=== PATIENT | male | born 1960 | race Caucasian/White ===

== ENCOUNTER 2020-07-10 07:58 | Outpatient (CLI) | payer OTHER, SELFPAY ==
--- NOTE | 2020-07-10 08:49 | ECG_ITS ---
Measurements Intervals [place] Rate: 81 P: 14 LA: 150 QRS: 39 QRSD: 93 T: 16 QT: 363 QTc: 422 Interpretive Statements SINUS RHYTHM DELAYED PRECORDIAL R/S TRANSITION BASELINE ARTIFACT- I, II, III, AVR, AVL, AVF BORDERLINE ECG Electronically Signed On 07-10-2020 9:06:18 PHYSICS TEACHER by Jose Steele D.O.
[2020-07-10 09:22] LABS: Basophils Absolute Auto 0.1 K/mm3 (0.0-0.1); Basophils Percent Auto 1.1 % (0.2-1.2); Eosinophils Absolute Auto 0.4 K/mm3 (0-0.3); Eosinophils Percent Auto 3.9 % (0-4.4); Hematocrit 42.5 % (42.0-52.0); Hemoglobin 15.3 g/dL (14.0-18.0); Immature Granulocyte Absolute 0.03 K/mm3 (0.00-0.031); Immature Granulocyte Percent A 0.3 % (0-0.5); Lymphocytes Absolute Auto 3.27 K/mm3 (0.9-3.2); Lymphocytes Percent Auto 35.7 % (18.3-44.2); Mean Corpuscular Volume 88.9 fl (80-100); Mean Platelet Volume 10.4 fl (7.4-10.4); Monocytes Absolute Auto 0.7 K/mm3 (0.1-0.6); Monocytes Percent Auto 7.3 % (2.6-8.5); Neutrophils Absolute Auto 4.7 K/mm3 (1.3-6.7); Neutrophils Percent Auto 51.7 % (45.5-73.1); Platelet Count Result 249 k/mm3 (150-375); Red Blood Count 4.78 M/mm3 (4.6-6.20); Red Cell Distribution Width 12.5 % (11.5-14.5); White Blood Count 9.2 K/mm3 (4.5-10.0)
[2020-07-10 09:33] LABS: Albumin Level 4.4 g/dL (3.5-5.1)
[2020-07-10 09:34] LABS: Urine Cotinine POSITIVE
[2020-07-10 09:53] LABS: Anion Gap 6 mmol/L (8-16); Blood Urea Nitrogen 24 mg/dL (9-20); Calcium 9.9 mg/dL (8.4-10.2); Carbon Dioxide 29 mmol/L (22-30); Chloride 102 mmol/L (98-107); Estimated Glomerular Filt Rate > 60; Glucose 152 mg/dL (75-110); Sodium 137 mmol/L (137-145)
[2020-07-10 10:11] LABS: Potassium 4.6 mmol/L (3.4-5.0)
== END 2020-07-10 07:59 | disposition home or self-care (01) ==
LOC: ANHSURGERY 08:03
PROVIDERS: Anesthesiology; PCP Family Medicine; Visit Provider Orthopaedic Surgery
DX: M17.12 Unilateral primary osteoarthritis, left knee (principal); Z79.899 Other long term (current) drug therapy; Z01.818 Encounter for other preprocedural examination; R94.31 Abnormal electrocardiogram [ECG] [EKG]
CPT/HCPCS: 80048; 80307; 82040; 83036; 85025; 86850; 86900; 86901; 87081; 93005

== ENCOUNTER 2022-03-27 11:40 | Outpatient (CLI) | payer OTHER, SELFPAY ==
[2022-03-27 18:39] LABS: Basophils Absolute Auto 0.1 K/mm3 (0.0-0.1); Basophils Percent Auto 1.6 % (0.2-1.2); Eosinophils Absolute Auto 0.4 K/mm3 (0-0.3); Eosinophils Percent Auto 4.3 % (0-4.4); Hematocrit 38.1 % (42.0-52.0); Hemoglobin 13.1 g/dL (14.0-18.0); Immature Granulocyte Absolute 0.02 K/mm3 (0.00-0.031); Immature Granulocyte Percent A 0.2 % (0-0.5); Lymphocytes Absolute Auto 3.54 K/mm3 (0.9-3.2); Lymphocytes Percent Auto 40.3 % (18.3-44.2); Mean Corpuscular HGB Conc 34.4 g/dl (32-36); Mean Corpuscular Volume 90.3 fl (80-100); Mean Platelet Volume 11.5 fl (7.4-10.4); Monocytes Absolute Auto 0.7 K/mm3 (0.1-0.6); Monocytes Percent Auto 8.4 % (2.6-8.5); Neutrophils Percent Auto 45.2 % (45.5-73.1); Platelet Count Result 289 k/mm3 (150-375); Red Blood Count 4.22 M/mm3 (4.6-6.20); Red Cell Distribution Width 13.1 % (11.5-14.5); White Blood Count 8.8 K/mm3 (4.5-10.0)
[2022-03-27 20:35] LABS: LDL Cholesterol Direct 51 mg/dL
[2022-03-27 20:48] LABS: Alanine Aminotransferase 28 U/L (6-50); Albumin Level 4.6 g/dL (3.5-5.1); Alkaline Phosphatase 97 U/L (38-126); Anion Gap 12 mmol/L (8-16); Aspartate Amino Transferase 32 U/L (17-59); Bilirubin,Total 0.3 mg/dL (0.2-1.3); Blood Urea Nitrogen 32 mg/dL (9-20); Calcium 10.1 mg/dL (8.4-10.2); Carbon Dioxide 25 mmol/L (22-30); Chloride 101 mmol/L (98-107); Cholesterol 199 mg/dL (0-200); Estimated Glomerular Filt Rate > 60; Glucose 324 mg/dL (65-110); Lipase 392 U/L (23-300); Potassium 4.3 mmol/L (3.4-5.0); Sodium 138 mmol/L (137-145)
[2022-03-27 21:24] LABS: Hemoglobin A1C 9.4 % (<5.7)
[2022-03-27 22:17] LABS: Triglycerides 640 mg/dL (<150)
== END 2022-03-27 11:41 | disposition home or self-care (01) ==
LOC: ANHGOSHLAB 11:41
PROVIDERS: PCP Emergency Medicine; Visit Provider Emergency Medicine
DX: E11.8 Type 2 diabetes mellitus with unspecified complications (principal); R10.9 Unspecified abdominal pain
CPT/HCPCS: 36415; 80053; 80061; 83036; 83690; 85025

== ENCOUNTER 2022-03-30 13:22 | Emergency (ER) | payer OTHER, SELFPAY ==
--- NOTE | ~2022-03-30 | US_ITS ---
EXAMINATION: US right upper quadrant DATE: 03/30/2022 16:24 INDICATION: Right upper quadrant pain TECHNIQUE: Multiple grayscale and Doppler ultrasound images of the abdomen were obtained. COMPARISON: None available FINDINGS: The head and body of the pancreas are normal. The pancreatic tail is obscured by bowel gas. The liver demonstrates increased echogenicity, heterogenous echotexture, and decreased through trans mission. No surface nodularity. Normal hepatopetal flow in the main portal vein. The gallbladder is n ormal with no abnormal wall thickening, pericholecystic fluid or stones. The normal common bile duct measures 3 mm. There was no sonographic Henry sign. IMPRESSION: 1. Diffuse hepatic steatosis. Reviewed, dictated and finalized at location B.
[2022-03-30 13:32] VITALS: BP 154/80; PULSE 101; RESP 15; TEMP 36.5; O2SAT 100
[2022-03-30 14:52] LABS: Basophils Absolute Auto 0.1 K/mm3 (0.0-0.1); Basophils Percent Auto 0.8 % (0.2-1.2); Eosinophils Absolute Auto 0.3 K/mm3 (0-0.3); Eosinophils Percent Auto 2.3 % (0-4.4); Hematocrit 35.5 % (42.0-52.0); Hemoglobin 12.7 g/dL (14.0-18.0); Immature Granulocyte Absolute 0.06 K/mm3 (0.00-0.031); Immature Granulocyte Percent A 0.4 % (0-0.5); Lymphocytes Absolute Auto 2.97 K/mm3 (0.9-3.2); Lymphocytes Percent Auto 21.9 % (18.3-44.2); Mean Corpuscular HGB Conc 35.8 g/dl (32-36); Mean Corpuscular Hemoglobin 31.7 pg (26-34); Mean Corpuscular Volume 88.5 fl (80-100); Mean Platelet Volume 10.5 fl (7.4-10.4); Monocytes Absolute Auto 0.9 K/mm3 (0.1-0.6); Monocytes Percent Auto 6.4 % (2.6-8.5); Neutrophils Absolute Auto 9.3 K/mm3 (1.3-6.7); Neutrophils Percent Auto 68.2 % (45.5-73.1); Platelet Count Result 280 k/mm3 (150-375); Red Blood Count 4.01 M/mm3 (4.6-6.20); Red Cell Distribution Width 12.4 % (11.5-14.5); White Blood Count 13.6 K/mm3 (4.5-10.0)
[2022-03-30 15:37] LABS: Alanine Aminotransferase 25 U/L (6-50); Albumin Level 4.6 g/dL (3.5-5.1); Alkaline Phosphatase 95 U/L (38-126); Anion Gap 14 mmol/L (8-16); Aspartate Amino Transferase 21 U/L (17-59); Bilirubin,Total 0.5 mg/dL (0.2-1.3); Blood Urea Nitrogen 26 mg/dL (9-20); Calcium 9.8 mg/dL (8.4-10.2); Carbon Dioxide 23 mmol/L (22-30); Chloride 98 mmol/L (98-107); Estimated CRCL calculation 89 ml/min; Estimated Glomerular Filt Rate > 60; Glucose 333 mg/dL (65-110); Lipase 425 U/L (23-300); Potassium 4.2 mmol/L (3.4-5.0); Sodium 135 mmol/L (137-145)
[2022-03-30] MEDS: ONDANSETRON INJ 4 MG/2 ML VIAL IV PUSH (16:05)
[2022-03-30] MEDS: MORPHINE SULFATE (*CRX) 4 MG/ML INJ IV PUSH (16:05)
[2022-03-30 16:44] LABS: Appearance Urine Clear (Clear); Bilirubin Urine Negative (Negative); Blood Urine Trace-lysed (Negative); Color Urine Yellow (Yellow); Glucose Urine UA 3+ mg/dL (Negative); Ketones Urine Trace mg/dL (Negative); Leukocyte Esterase Ur Negative LEU/UL (Negative); Nitrate Urine Negative (Negative); Protein Urine 2+ mg/dL (Negative); Specific Grav Ur 1.025 (1.001-1.035); Urobilinogen Urine 0.2 mg/dL (<2.0); pH Urine 5.5 (5.0-9.0)
[2022-03-30 16:52] LABS: RBC Urine 0-2 /hpf (0-2); WBC Urine 0-3 /hpf
[2022-03-30 17:21] LABS: Add Urine Microscopic? YES
--- NOTE | 2022-03-30 18:14 | ED.GENADULT ---
HPI - General Adult General Chief complaint: Abdominal Pain Stated complaint: abdominal pain Time Seen by Provider: 03/30/22 15:45 History of Present Illness HPI narrative: Patient is a 61-year-old male who presents ER with upper abdominal pain. Its been an ongoing issue for several weeks but is worsened over the last couple days. Associated with nausea and he started to have diarrhea. He has some pain with eating. Its in the right upper quadrant and moves to his back. No fevers or chills or sweats. No emesis. Has not found alleviating factors. Related Data Home Medications Medication Instructions Recorded Confirmed aspirin 81 mg tablet,delayed 81 mg PO DAILY 04/23/20 03/27/22 release (Adult Aspirin Regimen) niacin 1,000 mg tablet,extended 1,000 mg PO DAILY 04/23/20 03/27/22 release omega-3 fatty acids 1,000 mg 1,000 mg PO BID 04/23/20 03/27/22 capsule (Fish Oil Concentrate) ibuprofen 800 mg tablet 800 mg PO QAM 07/10/20 03/27/22 magnesium 500 mg tablet 15 mg PO DAILY 07/10/20 03/27/22 Allergies Allergy/AdvReac Type Severity Reaction Status Date / Time naproxen Allergy Unknown Skin Verified 03/27/22 10:41 Reaction-HIVES Review of Systems Review of Systems: All systems reviewed & are unremarkable except as noted in HPI and below Constitutional: Constitutional: Denies chills, Denies fatigue and Denies fever(s) ENT: Denies nasal congestion and Denies sore throat Cardiovascular: Cardiovascular: Denies chest pain, Denies rapid heart rate and Denies radiating jaw, neck or arm pain Respiratory: Respiratory: Denies cough, Denies dyspnea and Denies wheezing Gastrointestinal: Gastrointestinal: Reports abdominal pain, Reports diarrhea, Reports nausea and Denies vomiting Genitourinary: Genitourinary: Denies dysuria and Denies urinary frequency [facility] Past Medical History Medical History BMI 34.0-34.9,adult Essential (primary) hypertension Hemoglobin A1c between 7.0% and 9.0% 09/22/19 A1c was 7.1 Mixed hyperlipidemia Osteoarthritis of left knee Tibial mass Left knee meniscal cyst Type 2 diabetes mellitus with complication, without long-term current use of insulin Surgical History Surgical History History of back surgery 01/06/00, Dr. Rogers Family History Family History Mother Diabetes mellitus Hypertension Family history of cardiovascular disease Father Hypertension Family history of cardiovascular disease Cerebrovascular accident Family history of elevated blood lipids Family history of coronary artery disease Sibling Diabetes mellitus Grandparent Family history of malignant neoplasm Social History Social History Smoking status: Former smoker Tobacco type: cigars Additional smoking assessment comments: STATES HX CIGARETTES 2PK/DAY/30YRS QUIT FOR 7YRS NOW SMOKING 5-6 CIGARS/DAY Alcohol intake: current Drinks per week: 1 Alcohol use details: occasional Substance use: never Substance use type: does not use 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 HEAD: Normocephalic, atraumatic. NECK: Supple. CHEST: Clear to auscultation. No respiratory distress. HEART: Regular rate and rhythm. Normal peripheral pulses. ABDOMEN: Soft, mild discomfort in right upper quadrant without rebound or guarding, nondistended. EXTREMITIES: Normal range of motion. No edema. SKIN: Warm, dry, no rash. NEURO: Alert and oriented x3. PSYCH: Normal mood and affect. Course Vital Signs Vital signs: Vital Signs Temperature 97.7 F 03/30/22 13:32 Pulse Rate 101 H 03/30/22 1
== END 2022-03-30 18:37 | disposition home or self-care (01) ==
PROVIDERS: Emergency Provider Emergency Medicine; PCP Emergency Medicine
DX: E11.65 Type 2 diabetes mellitus with hyperglycemia (principal); K75.81 Nonalcoholic steatohepatitis (NASH); I10 Essential (primary) hypertension; E78.2 Mixed hyperlipidemia; F17.290 Nicotine dependence, other tobacco product, uncomplicated; Z79.82 Long term (current) use of aspirin; Z79.84 Long term (current) use of oral hypoglycemic drugs
CPT/HCPCS: 36415; 76705; 80053; 81001; 83690; 85025; 96374; 96375; 99284; J2270; J2405

== ENCOUNTER 2022-03-31 17:54 | Emergency (ER) | payer OTHER, SELFPAY ==
[2022-03-31] VITALS (17 sets, daily range): BP systolic 118–160; BP diastolic 79–108; PULSE 93–117; RESP 13–25; TEMP 36.8; O2SAT 96–100
--- NOTE | ~2022-03-31 | CT_ITS ---
EXAMINATION: CT abdomen pelvis w con DATE: 03/31/2022 20:26 INDICATION: Epigastric abdominal pain, eval for pancreatitis TECHNIQUE: Computed tomography (CT) of the abdomen and pelvis was performed with 100 mL Omnipaque-350 intravenous contrast. Automated exposure control and iterative reconstruction technique were employe d. The dose-length product was 1260.61 mGy-cm. COMPARISON: None. FINDINGS: Lower thorax: Aortic valve and heavy coronary artery calcification. Liver: Enlarged. Fatty infiltrated. Biliary/Gallbladder: Gallbladder is normal. No bile duct dilation. Pancreas: Focal 2 cm somewhat irregular hypoenhancing area in the uncinate process, with surrounding inflammatory change. Spleen: Normal. Adrenals:No mass. Kidneys: Right upper pole hypodensity, too small to characterize. No suspicious mass, stone, or hydro nephrosis. GI tract: No small or large bowel dilation. Normal appendix. Diverticulosis without diverticulitis. Mesentery/Peritoneum: No ascites, mass, or free air. Retroperitoneum: No mass. Atherosclerotic abdominal aortic and/or arterial calcifications. Pelvis: Bladder wall thickening likely due to outlet compromise from mild prostatomegaly. Soft Tissues: Soft tissues and body wall unremarkable. Bones: No acute osseous finding. IMPRESSION: 1. Mild inflammatory change at the pancreatic head and uncinate process. 2. Approximately 2 cm area of hypoenhancement in the uncinate process may reflect a small focus of ed mckenzie or necrosis. This should be reevaluated after resolution of symptoms to exclude a mass. 3. Hepatomegaly and steatosis. Reviewed, dictated and finalized at location K. IMPRESSION: 1. Mild inflammatory change at the pancreatic head and uncinate process. 2. Approximately 2 cm area of hypoenhancement in the uncinate process may refle ct a small focus of edema or necrosis. This should be reevaluated after resolut ion of symptoms to exclude a mass. 3. Hepatomegaly and steatosis.
[2022-03-31 18:18] LABS: Glucose Point of Care 357 mg/dl (65-105)
[2022-03-31 18:43] LABS: Basophils Absolute Auto 0.1 K/mm3 (0.0-0.1); Basophils Percent Auto 0.8 % (0.2-1.2); Eosinophils Absolute Auto 0.2 K/mm3 (0-0.3); Eosinophils Percent Auto 1.4 % (0-4.4); Hematocrit 36.2 % (42.0-52.0); Hemoglobin 13.1 g/dL (14.0-18.0); Immature Granulocyte Absolute 0.05 K/mm3 (0.00-0.031); Immature Granulocyte Percent A 0.4 % (0-0.5); Lymphocytes Absolute Auto 3.37 K/mm3 (0.9-3.2); Lymphocytes Percent Auto 25.6 % (18.3-44.2); Mean Corpuscular HGB Conc 36.2 g/dl (32-36); Mean Corpuscular Volume 88.5 fl (80-100); Mean Platelet Volume 10.7 fl (7.4-10.4); Monocytes Percent Auto 7.2 % (2.6-8.5); Neutrophils Absolute Auto 8.5 K/mm3 (1.3-6.7); Neutrophils Percent Auto 64.6 % (45.5-73.1); Platelet Count Result 315 k/mm3 (150-375); Red Blood Count 4.09 M/mm3 (4.6-6.20); Red Cell Distribution Width 12.5 % (11.5-14.5); White Blood Count 13.2 K/mm3 (4.5-10.0)
[2022-03-31 18:51] LABS: Alanine Aminotransferase 24 U/L (6-50); Albumin Level 4.7 g/dL (3.5-5.1); Alkaline Phosphatase 95 U/L (38-126); Anion Gap 17 mmol/L (8-16); Aspartate Amino Transferase 27 U/L (17-59); Bilirubin,Total 0.5 mg/dL (0.2-1.3); Blood Urea Nitrogen 27 mg/dL (9-20); Calcium 9.6 mg/dL (8.4-10.2); Carbon Dioxide 23 mmol/L (22-30); Chloride 97 mmol/L (98-107); Estimated CRCL calculation 89 ml/min; Estimated Glomerular Filt Rate > 60; Glucose 351 mg/dL (65-110); Lipase 388 U/L (23-300); Potassium 3.9 mmol/L (3.4-5.0); Sodium 137 mmol/L (137-145)
[2022-03-31 19:32] LABS: Appearance Urine Clear (Clear); Bilirubin Urine 1+ (Negative); Blood Urine Negative (Negative); Color Urine Yellow (Yellow); Glucose Urine UA 3+ mg/dL (Negative); Ketones Urine Trace mg/dL (Negative); Leukocyte Esterase Ur Negative LEU/UL (Negative); Nitrate Urine Negative (Negative); Protein Urine 2+ mg/dL (Negative); Specific Grav Ur >= 1.030 (1.001-1.035); Urobilinogen Urine 0.2 mg/dL (<2.0)
--- NOTE | 2022-03-31 19:41 | ED.ABDPAIN ---
HPI - Abdominal Pain General Chief Complaint: Recheck/Abnormal Lab/Rx Stated Complaint: abd pain Time Seen by Provider: 03/31/22 19:03 History of Present Illness HPI narrative: This is a 61-year-old male with past medical history of diabetes, hypertension returning from his primary care doctor's office with concern for acute pancreatitis. Patient was seen here yesterday with epigastric abdominal pain with lipase elevation. Abdominal ultrasound showed fatty changes of the liver. Patient was given IV fluids and pain control and was discharged. Patient states he feels much better and has been able to tolerate some foods. He is not sure why he is here. Related Data Home Medications Medication Instructions Recorded Confirmed aspirin 81 mg tablet,delayed 81 mg PO DAILY 04/23/20 03/27/22 release (Adult Aspirin Regimen) niacin 1,000 mg tablet,extended 1,000 mg PO DAILY 04/23/20 03/27/22 release omega-3 fatty acids 1,000 mg 1,000 mg PO BID 04/23/20 03/27/22 capsule (Fish Oil Concentrate) ibuprofen 800 mg tablet 800 mg PO QAM 07/10/20 03/27/22 magnesium 500 mg tablet 15 mg PO DAILY 07/10/20 03/27/22 Allergies Allergy/AdvReac Type Severity Reaction Status Date / Time naproxen Allergy Unknown Skin Verified 03/31/22 18:11 Reaction-HIVES Review of Systems Review of Systems: CONSTITUTIONAL: Denies fever, chills, or sweats. EYES: Denies visual changes, redness, or discharge. ENT: Denies rhinorrhea, congestion, sore throat, or otalgia. CARDIOVASCULAR: Denies chest pain, palpitations, or edema. RESPIRATORY: Denies cough or dyspnea. GASTROINTESTINAL: abdominal pain improved, denies nausea, vomiting, or diarrhea. GENITOURINARY: Denies dysuria or hematuria. SKIN: Denies rash or itching. MUSCULOSKELETAL: Denies back pain, joint pain, or myalgia. NEUROLOGIC: Denies headache, numbness, dizziness, or weakness. PSYCHIATRIC: Denies anxiety or depression. [facility] Past Medical History Medical History BMI 34.0-34.9,adult Essential (primary) hypertension Hemoglobin A1c between 7.0% and 9.0% 09/22/19 A1c was 7.1 Mixed hyperlipidemia Osteoarthritis of left knee Tibial mass Left knee meniscal cyst Type 2 diabetes mellitus with complication, without long-term current use of insulin Surgical History Surgical History History of back surgery 01/06/00, Dr. Rogers Family History Family History Mother Diabetes mellitus Hypertension Family history of cardiovascular disease Father Hypertension Family history of cardiovascular disease Cerebrovascular accident Family history of elevated blood lipids Family history of coronary artery disease Sibling Diabetes mellitus Grandparent Family history of malignant neoplasm Social History Social History Smoking status: Former smoker Tobacco type: cigars Additional smoking assessment comments: STATES HX CIGARETTES 2PK/DAY/30YRS QUIT FOR 7YRS NOW SMOKING 5-6 CIGARS/DAY Alcohol intake: current Drinks per week: 1 Alcohol use details: occasional Substance use: never Substance use type: does not use 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 HEAD: Normocephalic, atraumatic. EYES: PERRLA and EOMI. ENT: Nares clear, no rhinorrhea or epistaxis. Mucous membranes dry. Oropharynx without tonsillar hypertrophy exudate or other lesions. NECK: Supple. No adenopathy or masses. No carotid bruits or JVD CHEST: Clear to auscultation. No respiratory distress. No wheezes rales or rhonchi HEART: Regular rate and rhythm. No murmur heard. Normal peripheral pulses. ABDOMEN: S
[2022-03-31] MEDS: SODIUM CHLORIDE 0.9% IV 2,000 ML 999 ML IV CONT (19:45)
[2022-03-31 19:53] LABS: Mucus Urine Few /lpf; RBC Urine 0-2 /hpf (0-2); WBC Urine 0-3 /hpf
[2022-03-31 20:00] LABS: Add Urine Microscopic? YES
[2022-03-31 22:18] LABS: Anion Gap 9 mmol/L (8-16); Blood Urea Nitrogen 25 mg/dL (9-20); Calcium 8.8 mg/dL (8.4-10.2); Carbon Dioxide 24 mmol/L (22-30); Chloride 101 mmol/L (98-107); Estimated CRCL calculation 99 ml/min; Estimated Glomerular Filt Rate > 60; Glucose 273 mg/dL (65-110); Potassium 3.8 mmol/L (3.4-5.0); Sodium 134 mmol/L (137-145)
== END 2022-03-31 22:45 | disposition home or self-care (01) ==
PROVIDERS: Emergency Medicine; Emergency Provider Preventive Medicine Aerospace Medicine; PCP Emergency Medicine
DX: K85.90 Acute pancreatitis without necrosis or infection, unspecified (principal); E11.9 Type 2 diabetes mellitus without complications; I10 Essential (primary) hypertension; E78.2 Mixed hyperlipidemia; Z87.891 Personal history of nicotine dependence; Z79.82 Long term (current) use of aspirin; Z79.84 Long term (current) use of oral hypoglycemic drugs
CPT/HCPCS: 36415; 74177; 80048; 80053; 81001; 82948; 83690; 85025; 96360; 96361; 99284; J7030; Q9967

== ENCOUNTER 2022-06-26 09:46 | Outpatient (CLI) | payer OTHER, SELFPAY ==
[2022-06-26 19:06] LABS: Alanine Aminotransferase 22 U/L (6-50); Albumin Level 4.6 g/dL (3.5-5.1); Alkaline Phosphatase 53 U/L (38-126); Anion Gap 5 mmol/L (8-16); Aspartate Amino Transferase 33 U/L (17-59); Bilirubin,Total 0.5 mg/dL (0.2-1.3); Blood Urea Nitrogen 22 mg/dL (9-20); Calcium 9.6 mg/dL (8.4-10.2); Carbon Dioxide 30 mmol/L (22-30); Chloride 105 mmol/L (98-107); Cholesterol 173 mg/dL (0-200); Estimated Glomerular Filt Rate > 60; Glucose 118 mg/dL (65-110); HDL Direct 35 mg/dL; Lipase 92 U/L (23-300); Potassium 4.4 mmol/L (3.4-5.0); Sodium 140 mmol/L (137-145); Triglycerides 119 mg/dL (<150)
[2022-06-26 19:08] LABS: Hemoglobin A1C 7.9 % (<5.7)
[2022-06-26 19:18] LABS: LDL Cholesterol Direct 102 mg/dL
[2022-06-26 19:37] LABS: Prostate Specific Antigen 0.5 ng/mL (< OR = 4.0)
[2022-06-26 19:59] LABS: MALB Creatinine Ratio 23.3 mg/g (0-30); Microalbumin Urine Random 19.3 mg/L (0-16.7)
== END 2022-06-26 09:47 | disposition home or self-care (01) ==
LOC: ANHGOSHLAB 09:48
PROVIDERS: PCP Emergency Medicine; Visit Provider Emergency Medicine
DX: K85.90 Acute pancreatitis without necrosis or infection, unspecified (principal); E11.8 Type 2 diabetes mellitus with unspecified complications; Z12.5 Encounter for screening for malignant neoplasm of prostate
CPT/HCPCS: 36415; 80053; 80061; 82043; 83036; 83690; 84153; G0103

== ENCOUNTER → 2022-07-02 13:27 | Outpatient (CLI) | payer OTHER, SELFPAY ==
--- NOTE | ~2022-07-02 | CT_ITS ---
Non-contrast CT scan of the Abdomen and Pelvis Clinical indication: Pancreatitis, pancreatic mass Technique: 5 mm axial scans were obtained through the abdomen and pelvis without intravenous or oral contrast. Dose reduction technique was used on this scan by utilizing automated exposure control and iterative reconstruction technique. The dose-length product (DLP) was 947.65 mGy-cm. COMPARISON: 03/31/2022 Findings: Images through the lung bases reveal no abnormalities. There is no evidence of renal or ureteral calculi. The kidneys and the ureters are nondilated. The liver, spleen, pancreas, gallbladder, and adrenals appear normal. There is no aortic aneurysm. There is no evidence of bowel obstruction. There is mild sigmoid diverticulosis. Normal appendix. Images through the pelvis were performed. There is no evidence of ascites or lymphadenopathy. Urinary bladder unremarkable. No pelvic mass seen. Impression: No significant abnormality of the pancreas seen on this noncontrast exam. However, given the subtle h ypodense area in the uncinate process on prior exam, an IV contrast enhanced exam is recommended to b jimbo assess for persistence or resolution of this previously identified finding. Reviewed, dictated and finalized at location [] ENFORCEMENT OFFICER Impression: No significant abnormality of the pancreas seen on this noncontrast exam. Howev er, given the subtle hypodense area in the uncinate process on prior exam, an I V contrast enhanced exam is recommended to better assess for persistence or res olution of this previously identified finding.
--- NOTE | ~2022-07-02 | CT_ITS ---
EXAMINATION:CT lung screening DATE: 07/02/2022 13:55 INDICATION: Personal history of tobacco dependence. TECHNIQUE: Computed tomography (CT) of the chest was performed without intravenous contrast. Automate d exposure control and iterative reconstruction technique were employed. The dose-length product (DLP ) was 223.82 mGy-cm. COMPARISON: CT abdomen and pelvis 03/31/2022 FINDINGS: The lungs demonstrate minimal atelectasis. There is a 2 mm nodule in right upper lobe. No p leural effusion. The heart size is normal. There are coronary artery calcifications. There are calcif ications of the aortic valve. No pericardial effusion. There is a 10 mm mass in left adrenal gland me asuring low attenuation, consistent with an adenoma. There is mild chronic anterior wedging of multip le vertebral bodies. There is moderate thoracic spondylosis. IMPRESSION: 1. Lung-RADS category 2: Benign appearance or behavior. Continue annual screening with noncontrast lo w-dose chest CT in 12 months. Reviewed, dictated and finalized at location A. CONVERSION TECHNICIAN IMPRESSION: 1. Lung-RADS category 2: Benign appearance or behavior. Continue annual screeni ng with noncontrast low-dose chest CT in 12 months.
== END ==
PROVIDERS: PCP Emergency Medicine; Visit Provider Emergency Medicine
DX: K85.90 Acute pancreatitis without necrosis or infection, unspecified (principal); Z87.891 Personal history of nicotine dependence
CPT/HCPCS: 71271; 74176

== ENCOUNTER 2022-07-10 07:50 | Outpatient (CLI) | payer OTHER, SELFPAY ==
--- NOTE | ~2022-07-10 | CT_ITS ---
CT Abdomen with contrast. History: Pancreatic mass. Spiral CT of the abdomen was performed after the administration of intravenous contrast. 100 cc of Om nipaque 350 was administered intravenously without complication. Dose reduction technique was used on this scan by utilizing automated exposure control and iterative reconstruction technique. The dose-l ength product (DLP) was 859.47 mGy-cm. COMPARISON: 07/02/2022 and 03/31/2022 Findings: Scans through the lung bases are unremarkable. The liver, spleen, pancreas, gallbladder, adrenals and kidneys are within normal limits. The small hy podense area in the uncinate process of the pancreas seen on exam dated 03/31/2022 is resolved. No jaime dence of aortic aneurysm. No lymphadenopathy is seen. Visualized bowel loops are unremarkable. No ascites. Impression: Unremarkable appearance of the pancreas. Small hypodense area in the uncinate process seen on exam da diana 03/31/2022 is resolved. Reviewed, dictated and finalized at location . SERVICER Impression: Unremarkable appearance of the pancreas. Small hypodense area in the uncinate p rocess seen on exam dated 03/31/2022 is resolved.
== END 2022-07-10 07:51 | disposition home or self-care (01) ==
PROVIDERS: PCP Emergency Medicine; Visit Provider Emergency Medicine
DX: K85.90 Acute pancreatitis without necrosis or infection, unspecified (principal); K86.89 Other specified diseases of pancreas
CPT/HCPCS: 74160; Q9967

== ENCOUNTER 2022-07-30 00:17 | Day surgery (SDC) | payer OTHER, SELFPAY ==
[2022-07-17 08:47] VITALS: BMI 30.9
--- NOTE | 2022-07-29 08:33 | WPDANESEPPF ---
Anes - Initial Pre Proc Eval Procedure: Operation Date: 07/30/22 10:30 Proposed Procedures p Screening Colonoscopy - Jay Randall MD Date/Time: 07/29/22 08:33 Surgeon: Jay Randall MD Pre Op Diagnosis: neoplasm screening Patient Data Age: 61 Gender: M Height: 1.78 m Weight: 98 kg Allergies Allergy/AdvReac Type Severity Reaction Status Date / Time naproxen Allergy Unknown Skin Verified 07/30/22 09:43 Reaction-HIVES Home Medications Medication Instructions Recorded Confirmed Type aspirin 81 mg tablet,delayed 81 mg PO DAILY 04/23/20 07/17/22 History release (Adult Aspirin Regimen) omega-3 fatty acids 1,000 mg 1,000 mg PO BID 04/23/20 07/17/22 History capsule (Fish Oil Concentrate) ibuprofen 800 mg tablet 800 mg PO QAM PRN Pain 07/10/20 07/17/22 History magnesium 500 mg tablet 500 mg PO DAILY 07/10/20 07/17/22 History blood sugar diagnostic (FreeStyle #100 ea 04/09/22 06/26/22 Rx Test strips) blood-glucose meter (FreeStyle See Rx Instructions miscellaneous 04/09/22 07/17/22 Rx [place] kit) .COMPLEX #1 ea lancets 28 gauge (FreeStyle #100 ea 04/09/22 06/26/22 Rx Lancets) pen needle, diabetic 30 gauge x #100 ea 04/09/22 06/26/22 Rx 5/16 fenofibrate micronized 134 mg 134 mg PO DAILY #90 caps 04/10/22 07/17/22 Rx capsule metoprolol tartrate 25 mg tablet 25 mg PO BID #180 tabs 06/08/22 07/17/22 Rx esomeprazole magnesium 40 mg 40 mg PO DAILY 07/17/22 07/17/22 History capsule,delayed release hydrochlorothiazide 25 mg tablet 25 mg PO DAILY 07/17/22 07/17/22 History insulin detemir U-100 100 unit/mL 23 unit subcut QHS 07/17/22 07/17/22 History (3 mL) subcutaneous pen (Levemir FlexTouch U-100 Insulin) lisinopril 40 mg tablet 40 mg PO DAILY 07/17/22 07/17/22 History metformin 500 mg tablet,extended 1,000 mg PO BID #360 tabs 07/17/22 07/30/22 Rx release 24 hr sildenafil (pulm.hypertension) 20 See Rx Instructions .Route 07/17/22 07/30/22 Rx mg tablet .COMPLEX #90 tabs simvastatin 40 mg tablet 40 mg PO DAILY 07/17/22 07/17/22 History Patient hx anesthesia problems: none Family hx anesthesia problems: none Results Review: All pre-operative results and documents have been reviewed as part of the pre-operative evaluation. [facility] Past Medical History Medical History (Updated 07/30/22 @ 09:53 by Jay Randall MD) BMI 34.0-34.9,adult Essential (primary) hypertension Hemoglobin A1c between 7.0% and 9.0% 09/22/19 A1c was 7.1 Mixed hyperlipidemia LON (obstructive sleep apnea) CPAP Osteoarthritis of left knee Tibial mass Left knee meniscal cyst Type 2 diabetes mellitus with complication, without long-term current use of insulin Surgical History Surgical History History of back surgery 01/06/00, Dr. Rogers Family History Family History Mother Diabetes mellitus Hypertension Family history of cardiovascular disease Father Hypertension Family history of cardiovascular disease Cerebrovascular accident Family history of elevated blood lipids Family history of coronary artery disease Sibling Diabetes mellitus Grandparent Family history of malignant neoplasm Social History Social History Smoking status: Current some day smoker Tobacco type: cigars Additional smoking assessment comments: 5 cigars per day Alcohol intake: former Drinks per week: 1 Alcohol use details: occasional Substance use: never Substance use type: does not use Living arrangements: with family 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
[2022-07-30 09:46] VITALS: BP 134/82; PULSE 93; RESP 18; TEMP 36.1; O2SAT 100
--- NOTE | 2022-07-30 09:52 | PM.HPGS ---
History of Present Illness History of Present Illness Consent: Risks, benefits, and alternatives have been discussed and questions answered. Patient agrees to proceed with procedure. Chief complaint: neoplasm screening Narrative: Chinedu Childs is a 61 year old male Presents for screening colonoscopy. Patient's current weight appetite and bowel movements are normal. Patient denies abdominal pain. He has had no bleeding. Family history noncontributory. Previous colonoscopy 12 years ago was unremarkable. Review of Systems Review of Systems: Review of systems noncontributory. [facility] Past Medical History Medical History (Updated 07/30/22 @ 09:53 by Jay Randall MD) BMI 34.0-34.9,adult Essential (primary) hypertension Hemoglobin A1c between 7.0% and 9.0% 09/22/19 A1c was 7.1 Mixed hyperlipidemia LON (obstructive sleep apnea) CPAP Osteoarthritis of left knee Tibial mass Left knee meniscal cyst Type 2 diabetes mellitus with complication, without long-term current use of insulin Surgical History Surgical History History of back surgery 01/06/00, Dr. Rogers Family History Family History Mother Diabetes mellitus Hypertension Family history of cardiovascular disease Father Hypertension Family history of cardiovascular disease Cerebrovascular accident Family history of elevated blood lipids Family history of coronary artery disease Sibling Diabetes mellitus Grandparent Family history of malignant neoplasm Social History Social History Smoking status: Current some day smoker Tobacco type: cigars Additional smoking assessment comments: 5 cigars per day Alcohol intake: former Drinks per week: 1 Alcohol use details: occasional Substance use: never Substance use type: does not use Living arrangements: with family 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 Gender identity (if verbalized by the patient): Male Spiritual care concerns: No Meds Home Medications and Allergies Home Medications Medication Instructions Recorded Confirmed Type aspirin 81 mg tablet,delayed 81 mg PO DAILY 04/23/20 07/17/22 History release (Adult Aspirin Regimen) omega-3 fatty acids 1,000 mg 1,000 mg PO BID 04/23/20 07/17/22 History capsule (Fish Oil Concentrate) ibuprofen 800 mg tablet 800 mg PO QAM PRN Pain 07/10/20 07/17/22 History magnesium 500 mg tablet 500 mg PO DAILY 07/10/20 07/17/22 History blood sugar diagnostic (FreeStyle #100 ea 04/09/22 06/26/22 Rx Test strips) blood-glucose meter (FreeStyle See Rx Instructions miscellaneous 04/09/22 07/17/22 Rx [place] kit) .COMPLEX #1 ea lancets 28 gauge (FreeStyle #100 ea 04/09/22 06/26/22 Rx Lancets) pen needle, diabetic 30 gauge x #100 ea 04/09/22 06/26/22 Rx 5/16 fenofibrate micronized 134 mg 134 mg PO DAILY #90 caps 04/10/22 07/17/22 Rx capsule metoprolol tartrate 25 mg tablet 25 mg PO BID #180 tabs 06/08/22 07/17/22 Rx esomeprazole magnesium 40 mg 40 mg PO DAILY 07/17/22 07/17/22 History capsule,delayed release hydrochlorothiazide 25 mg tablet 25 mg PO DAILY 07/17/22 07/17/22 History insulin detemir U-100 100 unit/mL 23 unit subcut QHS 07/17/22 07/17/22 History (3 mL) subcutaneous pen (Levemir FlexTouch U-100 Insulin) lisinopril 40 mg tablet 40 mg PO DAILY 07/17/22 07/17/22 History metformin 500 mg tablet,extended 1,000 mg PO BID #360 tabs 07/17/22 07/30/22 Rx release 24 hr sildenafil (pulm.hypertension) 20 See Rx Instructions .Route 07/17/22 07/30/22 Rx mg tablet .COMPLEX #90 tabs simvastatin 40 mg tablet 40 mg PO DAILY 07/17/22 07/17/22 History Allergies Allergy/AdvReac Type Severity Reaction Status Date / Time naproxen Allergy Unknown Skin Verified 07/30/22 09:43 Reaction-HIVES Vital Signs Vital
[2022-07-30] MEDS: LACTATED RINGERS 1,000 ML 150 ML IV CONT (09:54)
--- NOTE | 2022-07-30 10:04 | WPDANESEPPF ---
Anes - Initial Pre Proc Eval Procedure: Operation Date: 07/30/22 10:30 Proposed Procedures p Screening Colonoscopy - Jay Randall MD Date/Time: 07/30/22 10:04 Surgeon: Jay Randall MD Pre Op Diagnosis: neoplasm screening Patient Data Age: 61 Gender: M Height: 1.78 m Weight: 96.9 kg Last Vital Signs Temp 97.0 F L 07/30/22 09:46 Pulse 93 07/30/22 09:46 Resp 18 07/30/22 09:46 BP 134/82 07/30/22 09:46 Pulse Ox 100 07/30/22 09:46 O2 Del Method Room Air 07/30/22 09:46 Allergies Allergy/AdvReac Type Severity Reaction Status Date / Time naproxen Allergy Unknown Skin Verified 07/30/22 09:43 Reaction-HIVES Home Medications Medication Instructions Recorded Confirmed Type aspirin 81 mg tablet,delayed 81 mg PO DAILY 04/23/20 07/17/22 History release (Adult Aspirin Regimen) omega-3 fatty acids 1,000 mg 1,000 mg PO BID 04/23/20 07/17/22 History capsule (Fish Oil Concentrate) ibuprofen 800 mg tablet 800 mg PO QAM PRN Pain 07/10/20 07/17/22 History magnesium 500 mg tablet 500 mg PO DAILY 07/10/20 07/17/22 History blood sugar diagnostic (FreeStyle #100 ea 04/09/22 06/26/22 Rx Test strips) blood-glucose meter (FreeStyle See Rx Instructions miscellaneous 04/09/22 07/17/22 Rx [place] kit) .COMPLEX #1 ea lancets 28 gauge (FreeStyle #100 ea 04/09/22 06/26/22 Rx Lancets) pen needle, diabetic 30 gauge x #100 ea 04/09/22 06/26/22 Rx 5/16 fenofibrate micronized 134 mg 134 mg PO DAILY #90 caps 04/10/22 07/17/22 Rx capsule metoprolol tartrate 25 mg tablet 25 mg PO BID #180 tabs 06/08/22 07/17/22 Rx esomeprazole magnesium 40 mg 40 mg PO DAILY 07/17/22 07/17/22 History capsule,delayed release hydrochlorothiazide 25 mg tablet 25 mg PO DAILY 07/17/22 07/17/22 History insulin detemir U-100 100 unit/mL 23 unit subcut QHS 07/17/22 07/17/22 History (3 mL) subcutaneous pen (Levemir FlexTouch U-100 Insulin) lisinopril 40 mg tablet 40 mg PO DAILY 07/17/22 07/17/22 History metformin 500 mg tablet,extended 1,000 mg PO BID #360 tabs 07/17/22 07/30/22 Rx release 24 hr sildenafil (pulm.hypertension) 20 See Rx Instructions .Route 07/17/22 07/30/22 Rx mg tablet .COMPLEX #90 tabs simvastatin 40 mg tablet 40 mg PO DAILY 07/17/22 07/17/22 History Patient hx anesthesia problems: none Family hx anesthesia problems: none Results Review: All pre-operative results and documents have been reviewed as part of the pre-operative evaluation. [facility] Past Medical History Medical History (Updated 07/30/22 @ 09:53 by Jay Randall MD) BMI 34.0-34.9,adult Essential (primary) hypertension Hemoglobin A1c between 7.0% and 9.0% 09/22/19 A1c was 7.1 Mixed hyperlipidemia LON (obstructive sleep apnea) CPAP Osteoarthritis of left knee Tibial mass Left knee meniscal cyst Type 2 diabetes mellitus with complication, without long-term current use of insulin Surgical History Surgical History History of back surgery 01/06/00, Dr. Rogers Family History Family History Mother Diabetes mellitus Hypertension Family history of cardiovascular disease Father Hypertension Family history of cardiovascular disease Cerebrovascular accident Family history of elevated blood lipids Family history of coronary artery disease Sibling Diabetes mellitus Grandparent Family history of malignant neoplasm Social History Social History Smoking status: Current some day smoker Tobacco type: cigars Additional smoking assessment comments: 5 cigars per day Alcohol intake: former Drinks per week: 1 Alcohol use details: occasional Substance use: never Substance use type: does not use Living arrangements: with family 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
[2022-07-30 10:33] LABS: Glucose Point of Care 111 mg/dl (65-105)
[2022-07-30 10:38] VITALS: BP 105/62; PULSE 91; RESP 19; O2SAT 95
[2022-07-30 10:48] VITALS: BP 106/66; PULSE 86; RESP 20; O2SAT 96
[2022-07-30 10:48] LABS: Glucose Point of Care 123 mg/dl (65-105)
[2022-07-30 10:58] VITALS: BP 116/77; PULSE 79; RESP 17; O2SAT 98
== END 2022-07-30 11:10 | disposition home or self-care (01) ==
PROVIDERS: PCP Emergency Medicine; Visit Provider Internal Medicine Gastroenterology
PROC: 0DJD8ZZ Inspection of Lower Intestinal Tract, Via Natural or Artificial Opening Endoscopic (ICD-10-PCS; CPT 45378; principal; 2022-07-30 10:30)
DX: Z12.11 Encounter for screening for malignant neoplasm of colon (principal); D12.2 Benign neoplasm of ascending colon; K57.30 Diverticulosis of large intestine without perforation or abscess without bleeding; I10 Essential (primary) hypertension; G47.33 Obstructive sleep apnea (adult) (pediatric); E11.9 Type 2 diabetes mellitus without complications; E78.2 Mixed hyperlipidemia; F17.290 Nicotine dependence, other tobacco product, uncomplicated; E66.9 Obesity, unspecified; Z68.30 Body mass index [BMI] 30.0-30.9, adult; Z79.82 Long term (current) use of aspirin; Z79.84 Long term (current) use of oral hypoglycemic drugs; Z79.4 Long term (current) use of insulin
CPT/HCPCS: 45385; 82948; 88305; J2704; J7120

== ENCOUNTER 2023-01-26 15:58 | Outpatient (CLI) | payer OTHER, SELFPAY ==
[2023-01-26 21:16] LABS: Hemoglobin A1C 7.4 % (<5.7)
== END 2023-01-26 15:59 | disposition home or self-care (01) ==
LOC: ANHGOSHLAB 15:59
PROVIDERS: PCP Emergency Medicine; Visit Provider Emergency Medicine
DX: E11.8 Type 2 diabetes mellitus with unspecified complications (principal)
CPT/HCPCS: 36415; 83036

== ENCOUNTER 2023-03-30 13:55 | Outpatient (CLI) | payer OTHER, SELFPAY ==
--- NOTE | ~2023-03-30 | US_ITS ---
US arterial ankle brachial ind INDICATION: Peripheral vascular disease TECHNIQUE: Segmental pressures and plethysmographic and Doppler waveforms of the brachial and lower e xtremity arteries were obtained. COMPARISON: None. FINDINGS: Right and left brachial artery pressures of 140 mm Hg and 140 mm Hg, respectively, are concordant (no rmal difference <= 30 mmHg). The right ankle-brachial index (JOHANNE) is 0.57 (normal >= 0.9-1.0). The right great toe-brachial index (TBI) is 0.23 (normal >= 0.60). The left JOHANNE is 0.65. The left TBI is 0.35. IMPRESSION: 1. Diminished bilateral ankle and toe brachial indices, consistent with moderate peripheral arterial disease. Reviewed, dictated and finalized at location B. IMPRESSION: 1. Diminished bilateral ankle and toe brachial indices, consistent with moderat e peripheral arterial disease.
== END 2023-03-30 13:56 | disposition home or self-care (01) ==
PROVIDERS: PCP Emergency Medicine; Visit Provider Emergency Medicine
DX: I73.9 Peripheral vascular disease, unspecified (principal)
CPT/HCPCS: 93922

== ENCOUNTER 2023-05-22 12:41 | Outpatient (CLI) | payer OTHER, SELFPAY ==
--- NOTE | 2023-05-22 12:59 | ECHO_ITS ---
Patient Info Name: Chinedu Childs Age: 62 years : 1960 Gender: Male Ht: 70 in Wt: 224 lbs BSA: 2.27 m2 HR: 92 bpm BP: 162 / 86 mmHg Heart Rhythm: Sinus Rhythm Technical Quality: Good Exam Date: 05/22/2023 1:07 PM Exam Location: Echo Lab Patient Status: Outpatient Admit Date: 05/22/2023 Staff Ordering Physician: Emmett Angel MD Highway Technician: Anna Garland RDCS Attending Provider: Emmett Angel MD Referring Physician: Stanley HILARIO; Exam Type: CA echo doppler color flow Study Info Indications - murmur Complete two-dimensional, color flow and Doppler transthoracic echocardiogram is performed. Summary 1. Complete two-dimensional, color flow and Doppler transthoracic echocardiogram is performed. 2. Left ventricular chamber dimension is normal. 3. Left ventricular systolic function is normal, estimated at 65-70%. 4. There is mild concentric increased left ventricular wall thickness. 5. The left ventricular diastolic function is grade I diastolic dysfunction. 6. E/e' 10 is mildly elevated. 7. The aortic valve is not well visualized. Cannot determine number of aortic valve leaflets. 8. There is mild aortic valve sclerosis. 9. No pulmonary hypertension, estimated pulmonary arterial systolic pressure is 16 mmHg. Left Ventricle E/e' 10 is mildly elevated. Left ventricular chamber dimension is normal. Left ventricular systolic function is normal, estimated at 65-70%. There is mild concentric increased left ventricular wall thickness. The left ventricular diastolic function is grade I diastolic dysfunction. Right Ventricle Right ventricular systolic function is normal and with normal TAPSE 3.0 cm. Right ventricular chamber dimension is normal. Left Atria Left atrial chamber dimension is normal. Right Atria Right atrial chamber dimension is normal. Aortic Valve The aortic valve is not well visualized. Cannot determine number of aortic valve leaflets. There is mild aortic valve sclerosis. There is no aortic valve stenosis. There is no aortic valve regurgitation. Pulmonic Valve There is no pulmonic regurgitation. Mitral Valve There is no mitral valve stenosis. There is no mitral valve regurgitation. Tricuspid Valve There is no tricuspid valve regurgitation. No pulmonary hypertension, estimated pulmonary arterial systolic pressure is 16 mmHg. Pericardium/Pleural There is no pericardial effusion. Inferior Vena Cava Normal inferior vena cava with >50% collapse upon inspiration consistent with normal right atrial pressure, 5 mmHg. Aorta The aortic root size at the sinus of Valsalva is normal. Left Ventricular Outflow Tract Name Value Normal LVOT 2D LVOT Diameter 2.1 cm LVOT Doppler LVOT Peak Gradient 6 mmHg LVOT Mean Gradient 3 mmHg LVOT VTI 26 cm LVOT VTI/AV VTI Ratio 0.7 LVOT Stroke Volume 90 ml LVOT CO 7.1 l/min LVOT CI 3.1 l/min/m2 Pulmonic Valve Name
== END 2023-05-22 12:42 | disposition home or self-care (01) ==
PROVIDERS: PCP Emergency Medicine; Visit Provider Emergency Medicine
DX: R01.1 Cardiac murmur, unspecified (principal); I35.8 Other nonrheumatic aortic valve disorders
CPT/HCPCS: 93306

== ENCOUNTER 2023-07-13 08:19 | Outpatient (CLI) | payer OTHER, SELFPAY ==
[2023-07-13 19:18] LABS: Alanine Aminotransferase 21 U/L (6-50); Albumin Level 4.3 g/dL (3.5-5.1); Alkaline Phosphatase 56 U/L (38-126); Anion Gap 11 mmol/L (8-16); Aspartate Amino Transferase 70 U/L (17-59); Bilirubin,Total 0.4 mg/dL (0.2-1.3); Blood Urea Nitrogen 21 mg/dL (9-20); Calcium 9.6 mg/dL (8.4-10.2); Carbon Dioxide 25 mmol/L (22-30); Chloride 106 mmol/L (98-107); Cholesterol 191 mg/dL (0-200); Estimated Glomerular Filt Rate > 60; Glucose 140 mg/dL (65-110); HDL Direct 32 mg/dL; Hemoglobin A1C 7.6 % (<5.7); Potassium 4.2 mmol/L (3.4-5.0); Sodium 142 mmol/L (137-145); Triglycerides 212 mg/dL (<150)
[2023-07-13 19:29] LABS: LDL Cholesterol Direct 104 mg/dL
[2023-07-13 19:50] LABS: Prostate Specific Antigen 0.5 ng/mL (< OR = 4.0)
[2023-07-13 20:09] LABS: Microalbumin Urine Random 88.8 mg/L (0-16.7)
[2023-07-13 20:13] LABS: Creatinine Urine 114.1 mg/dL; MALB Creatinine Ratio 77.8 mg/g (0-30)
== END 2023-07-13 08:20 | disposition home or self-care (01) ==
LOC: ANHGOSHLAB 08:21
PROVIDERS: PCP Emergency Medicine; Visit Provider Emergency Medicine
DX: E11.40 Type 2 diabetes mellitus with diabetic neuropathy, unspecified (principal); Z79.4 Long term (current) use of insulin; Z12.5 Encounter for screening for malignant neoplasm of prostate; E78.2 Mixed hyperlipidemia; I73.9 Peripheral vascular disease, unspecified
CPT/HCPCS: 36415; 80053; 80061; 82043; 83036; 84153; G0103

== ENCOUNTER 2023-11-23 07:56 | Outpatient (CLI) | payer OTHER, SELFPAY ==
[2023-11-23 14:14] LABS: Alanine Aminotransferase 19 U/L (6-50); Albumin Level 4.6 g/dL (3.5-5.1); Alkaline Phosphatase 50 U/L (38-126); Anion Gap 8 mmol/L (4-12); Aspartate Amino Transferase 47 U/L (17-59); Bilirubin,Total 0.5 mg/dL (0.2-1.3); Blood Urea Nitrogen 23 mg/dL (9-20); Calcium 9.5 mg/dL (8.4-10.2); Carbon Dioxide 25 mmol/L (22-30); Chloride 106 mmol/L (98-107); Estimated Glomerular Filt Rate > 60; Glucose 120 mg/dL (65-110); Potassium 3.8 mmol/L (3.4-5.0); Sodium 139 mmol/L (137-145)
== END 2023-11-23 07:57 | disposition home or self-care (01) ==
LOC: ANHGOSHLAB 07:57
PROVIDERS: PCP Emergency Medicine; Visit Provider Emergency Medicine
DX: E11.40 Type 2 diabetes mellitus with diabetic neuropathy, unspecified (principal); Z79.4 Long term (current) use of insulin
CPT/HCPCS: 36415; 80053; 83036

== ENCOUNTER 2024-04-03 12:40 | Emergency (ER) | payer OTHER, MEDICARE, SELFPAY ==
[2024-04-03] VITALS (11 sets, daily range): BP systolic 126–160; BP diastolic 72–84; PULSE 78–96; RESP 14–21; TEMP 36.6; O2SAT 97–100
--- NOTE | ~2024-04-03 | XR_ITS ---
XR knee LT 3V Ordering provider: Ildefonso Cameron MD History: . fall . Comparison: July 09, 2020 FINDINGS: BONES: No acute fracture or dislocation. JOINT SPACES: Severe narrowing of the medial compartment. SOFT TISSUES: Vascular calcifications. IMPRESSION: No acute osseous abnormality left knee. Severe osteoarthritic changes. Reviewed, dictated and finalized at location A.
--- NOTE | ~2024-04-03 | XR_ITS ---
EXAMINATION: XR foot RT min 3V DATE: 04/03/2024 13:57 INDICATION: Right foot injury. TECHNIQUE: 4 views of right foot were obtained. COMPARISON: None. FINDINGS: There is lateral dislocation of the metatarsals with respect to the tarsals. No visible acu te fracture. There is heterotopic ossification distal to medial malleolus. There is mild osteoarthrit is of first metatarsophalangeal joint and talonavicular joint. There is an enthesophyte at plantar as pect of calcaneal tuberosity. IMPRESSION: 1. Homolateral Lisfranc joint dislocation. Reviewed, dictated and finalized at location A.
--- NOTE | ~2024-04-03 | XR_ITS ---
EXAMINATION: XR ankle RT min 3V DATE: 04/03/2024 13:38 INDICATION: Right ankle deformity post fall TECHNIQUE: Anteroposterior, oblique, mortise, and lateral views of the right ankle were obtained. COMPARISON: None. FINDINGS: Plantar/lateral dislocation along the tarsal metatarsal joints. Normal alignment at the right ankle a nd hindfoot. No acute fractures identified although assessment at the tarsal metatarsal joints is li ited on the on projections obtained for assessment of the ankle as well as due to the superimposition of the displaced bones. Heterotopic ossification near the tip the medial malleolus consistent with s equela of chronic ankle sprain. IMPRESSION: 1. Dorsal lateral dislocation across the Lisfranc joint. No fractures identified although evaluation of the midfoot is limited on radiograph of the ankle further complicated by the malalignment. Conside r CT for further evaluation. Reviewed, dictated and finalized at location B. IMPRESSION: 1. Dorsal lateral dislocation across the Lisfranc joint. No fractures identifie d although evaluation of the midfoot is limited on radiograph of the ankle furt her complicated by the malalignment. Consider CT for further evaluation.
--- NOTE | 2024-04-03 13:40 | PC.NURSE ---
Pt to XRAY via stretcher at this time.
--- NOTE | 2024-04-03 14:00 | ED.GENADULT ---
HPI - General Adult General Chief complaint: Extremity Injury, Lower Stated complaint: left foot injury Time Seen by Provider: 04/03/24 13:19 History of Present Illness HPI narrative: 63-year-old male presents to the emergency department for evaluation for right foot pain patient did get his foot rolled over by a tractor. Patient denies any other injury. Related Data Home Medications Medication Instructions Recorded Confirmed aspirin 81 mg tablet,delayed 81 mg PO DAILY 04/23/20 12/01/23 release (Adult Aspirin Regimen) omega-3 fatty acids 1,000 mg 1,000 mg PO BID 04/23/20 12/01/23 capsule (Fish Oil Concentrate) ibuprofen 800 mg tablet 800 mg PO QAM PRN Pain 07/10/20 12/01/23 magnesium 500 mg tablet 500 mg PO DAILY 07/10/20 12/01/23 Allergies Allergy/AdvReac Type Severity Reaction Status Date / Time naproxen Allergy Unknown Skin Verified 04/03/24 12:41 Reaction-HIVES Review of Systems Review of Systems: All systems reviewed & are unremarkable except as noted in HPI and below PMFSH Past Medical History Medical History Essential (primary) hypertension Hemoglobin A1c between 7.0% and 9.0% 09/22/19 A1c was 7.1 Mixed hyperlipidemia LON (obstructive sleep apnea) CPAP Tibial mass Left knee meniscal cyst Surgical History Surgical History History of back surgery 01/06/00, Dr. Rogers Family History Family History Mother Diabetes mellitus Hypertension Family history of cardiovascular disease Father Hypertension Family history of cardiovascular disease Cerebrovascular accident Family history of elevated blood lipids Family history of coronary artery disease Sibling Diabetes mellitus Grandparent Family history of malignant neoplasm Social History Social History Smoking status: Former smoker (Quit 15 years ago, used to smoke 2 ppd for 20 years. 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 HEAD: normocephalic, atraumatic. EYES: PERRLA/EOMI, conjunctivae clear. NOSE: Normal no drainage EARS:TMS clear with good light reflex. THROAT: Pharynx clear, no exudate. NECK: Supple. No adenopathy, no masses. RESPIRATORY: Airway patent, respirations nonlabored. Clear to auscultation bilaterally, no rales, rhonchi, wheezing. CARDIOVASCULAR: Regular rate and rhythm without murmurs rubs or gallops. ABDOMINAL: Soft, nontender, nondistended, normal bowel sounds MUSCULOSKELETAL: Right foot deformity at mid foot neurovascularly intact NEURO: Alert. Cranial nerves II through XII intact. Good gait. Good coordination SKIN: Warm, dry. Normal Color Course Vital Signs Vital signs: Vital Signs Temperature 98 F 04/03/24 12:43 Pulse Rate 96 04/03/24 12:43 Respiratory Rate 18 04/03/24 12:43 Blood Pressure 141/75 H 04/03/24 12:43 Pulse Oximetry 98 04/03/24 12:43 Temperature 98 F 04/03/24 12:43 Pulse Rate 86 04/03/24 16:35 Respiratory Rate 16 04/03/24 16:35 Blood Pressure 1
[2024-04-03] MEDS: HYDROmorphone HCL INJ (*CRX) 1 MG/ML SYR 0.5 MG IV PUSH ×2 (14:19→16:34)
[2024-04-03 14:51] LABS: Basophils Absolute Auto 0.1 K/mm3 (0.0-0.1); Eosinophils Absolute Auto 0.2 K/mm3 (0-0.3); Eosinophils Percent Auto 1.9 % (0-4.4); Hematocrit 35.8 % (42.0-52.0); Hemoglobin 12.6 g/dL (14.0-18.0); Immature Granulocyte Absolute 0.04 K/mm3 (0.00-0.031); Immature Granulocyte Percent A 0.5 % (0-0.5); Lymphocytes Absolute Auto 1.83 K/mm3 (0.9-3.2); Lymphocytes Percent Auto 20.7 % (18.3-44.2); Mean Corpuscular HGB Conc 35.2 g/dl (32-36); Mean Corpuscular Hemoglobin 31.7 pg (26-34); Mean Corpuscular Volume 89.9 fl (80-100); Mean Platelet Volume 10.5 fl (7.4-10.4); Monocytes Absolute Auto 0.7 K/mm3 (0.1-0.6); Monocytes Percent Auto 7.6 % (2.6-8.5); Neutrophils Absolute Auto 6.1 K/mm3 (1.3-6.7); Neutrophils Percent Auto 68.3 % (45.5-73.1); Platelet Count Result 287 k/mm3 (150-375); Red Blood Count 3.98 M/mm3 (4.6-6.20); Red Cell Distribution Width 12.3 % (11.5-14.5); White Blood Count 8.9 K/mm3 (4.5-10.0)
[2024-04-03 15:02] LABS: Alanine Aminotransferase 31 U/L (6-50); Albumin Level 4.4 g/dL (3.5-5.1); Alkaline Phosphatase 52 U/L (38-126); Anion Gap 12 mmol/L (4-12); Aspartate Amino Transferase 40 U/L (17-59); Bilirubin,Total 0.3 mg/dL (0.2-1.3); Blood Urea Nitrogen 22 mg/dL (9-20); Calcium 9.4 mg/dL (8.4-10.2); Carbon Dioxide 23 mmol/L (22-30); Chloride 102 mmol/L (98-107); Estimated CRCL calculation 81 ml/min; Estimated Glomerular Filt Rate > 60; Glucose 179 mg/dL (65-110); Sodium 137 mmol/L (137-145)
== END 2024-04-03 17:04 | disposition short-term general hospital (02) ==
PROVIDERS: Emergency Provider Emergency Medicine; PCP Emergency Medicine
DX: S93.324A Dislocation of tarsometatarsal joint of right foot, initial encounter (principal); I10 Essential (primary) hypertension; E78.2 Mixed hyperlipidemia; G47.33 Obstructive sleep apnea (adult) (pediatric); F17.290 Nicotine dependence, other tobacco product, uncomplicated; Z79.82 Long term (current) use of aspirin; W30.89XA Contact with other specified agricultural machinery, initial encounter
CPT/HCPCS: 29515; 36415; 73562; 73610; 73630; 80053; 85025; 96374; 96376; 99285; J1170

== ENCOUNTER 2024-09-21 08:45 | Outpatient (RCR) | payer OTHER, MEDICARE, SELFPAY ==
--- NOTE | 2024-07-20 10:04 | OPREHPOC ---
Outpatient Therapy Plan of Care This is a Multidisciplinary Plan of Care that may contain components documented by all disciplines (PT, OT, and ST.) PT Problem 1 PT Problem #1 Knowledge Deficit PT Goal 1 Goal / Goal Update Pt to be IND with issued HEP Target Visit 10 PT Problem 2 PT Problem #2 Impaired Range of Motion PT Goal 1 Goal / Goal Update 1. Pt to increase ankle dorsiflexion to 10 deg 2. Pt to increase ankle plantarflexion to 45 deg 3. Pt to increase great toe extension to 60 deg PT Problem 3 PT Problem #3 Impaired Gait PT Goal 1 Goal / Goal Update 1. Pt to demonstrate 350ft distance on the 2 min walk test. 2. Pt to ambulate on level ground without an AD. ---- when protocol allows---- Target Visit 20
--- NOTE | 2024-07-20 10:04 | PTOPEVAL1 ---
Assessment and note entered by Yonatan Pierce, PT, DPT Evaluation Information Assessment Status Evaluation Diagnosis R foot ORIF ICD-10 Condition Codes (PT) Pain in right ankle and joints of right foot M25. 571,Difficulty Walking R26.2,Encounter for other orthopedic aftercare Z47.89 Onset 04/03/24 Subjective Information Pt states he has a lisfranc dislocation d/t his foot being run over by a tractor. He could not have surgery for 6 weeks d/t swelling, ended up having this done on 05/16/24. A plate and 9 screws were inserted. He has been 50% WB since his follow up 06/28/24, he returns to the doctor . 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 Reported Pain Level Pain Score 0: Self Report Assessment PT Clinical Summary Pt presents to therapy today for his initial evaluation following a Lisfranc dislocation and subsequent ORIF. He is still currently 50% WBing. Pt demonstrates decreased ankle, foot, and toe mobility in all planes of motions. He ambulates with crutches and a boot. He is unable to complete functional tasks at this time d/t his weight bearing restriction. Skilled therapy services are indicated to improve ROM, strength, and to progress to ambulation when able. Plan of Care Interventions Electrical Stimulation,Gait Training,Hot Pack/Cold Pack,Manual Therapy,Neuro Re-education,Patient/ Caregiver Education,Therapeutic Activities, Therapeutic Exercise PT Services Indicated Yes Treatment Frequency and 2x/wk for 10 visits Duration These treatments will address the objective and functional deficits as defined above. The patient will be advanced safely and appropriately in order for the patient to progress towards his/her prior level of function. Additional exercises will be introduced and as well as a comprehensive home exercise program upon discharge, if needed, ?to ensure carryover of functional gains achieved in the clinic. This treatment plan has been reviewed and agreement upon by the patient.
--- NOTE | 2024-08-23 08:58 | OPREHPOC ---
Outpatient Therapy Plan of Care This is a Multidisciplinary Plan of Care that may contain components documented by all disciplines (PT, OT, and ST.) PT Problem 1 PT Problem #1 Knowledge Deficit PT Goal 1 Goal / Goal Update Pt to be IND with issued HEP Target Visit 10 Progress Met PT Problem 2 PT Problem #2 Impaired Range of Motion PT Goal 1 Goal / Goal Update 1. Pt to increase ankle dorsiflexion to 10 deg 2. Pt to increase ankle plantarflexion to 45 deg 3. Pt to increase great toe extension to 60 deg 09/20/24: 1-3. progressing Progress Partially Met PT Problem 3 PT Problem #3 Impaired Gait PT Goal 1 Goal / Goal Update 1. Pt to demonstrate 350ft distance on the 2 min walk test. 2. Pt to ambulate on level ground without an AD. ---- when protocol allows---- Target Visit 20
--- NOTE | 2024-09-21 10:08 | OPREHPOC ---
Outpatient Therapy Plan of Care This is a Multidisciplinary Plan of Care that may contain components documented by all disciplines (PT, OT, and ST.) PT Problem 1 PT Problem #1 Knowledge Deficit PT Goal 1 Goal / Goal Update Pt to be IND with issued HEP 09/21/24: 1. met Target Visit 10 Progress Met PT Problem 2 PT Problem #2 Impaired Range of Motion PT Goal 1 Goal / Goal Update 1. Pt to increase ankle dorsiflexion to 10 deg 2. Pt to increase ankle plantarflexion to 45 deg 3. Pt to increase great toe extension to 60 deg 09/20/24: 1-3. progressing Progress Partially Met PT Problem 3 PT Problem #3 Impaired Gait PT Goal 1 Goal / Goal Update 1. Pt to demonstrate 350ft distance on the 2 min walk test. 2. Pt to ambulate on level ground without an AD. ---- when protocol allows---- 09/21/24: 1. 160ft 2. met, with compensations Target Visit 20
--- NOTE | 2024-09-21 10:08 | PTOPPROG ---
Assessment and note entered by Yonatan Pierce, PT, DPT Evaluation Information Assessment Status Progress Diagnosis R foot ORIF ICD-10 Condition Codes (PT) Pain in right ankle and joints of right foot M25. 571,Difficulty Walking R26.2,Encounter for other orthopedic aftercare Z47.89 Onset 04/03/24 Subjective Information Pt just followed up with his provider and got a good report. He is able to return to work light duty on 09/25/24. He no longer has to wear his boot and has no restrictions. 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 Assessment PT Clinical Summary Pt presents to therapy today for his progress report following 17 visits of skilled therapy following a Lisfranc dislocation and subsequent ORIF. Pt is now no longer required to wear and boot and is able to return to work light duty. Today pt demonstrates mild improvements in his foot and ankle mobility. He continues to demonstrates decreased ankle, foot, and toe mobility in all planes of motions, he also demonstrates decreased balance and strength in his R ankle. Pt educated on the importance of continuing therapy for strength, ROM, balance, gait training, and education on lifting mechanics. Pt was adamant about returning to work. Pt agreeable to a follow up visit in 6 weeks to measure progress and to progress HEP as needed. Plan of Care Interventions Electrical Stimulation,Gait Training,Hot Pack/Cold Pack,Manual Therapy,Neuro Re-education,Patient/ Caregiver Education,Therapeutic Activities, Therapeutic Exercise PT Services Indicated Yes Treatment Frequency and follow up in 6 weeks Duration These treatments will address the objective and functional deficits as defined above. The patient will be advanced safely and appropriately in order for the patient to progress towards his/her prior level of function. Additional exercises will be introduced and as well as a comprehensive home exercise program upon discharge, if needed, ?to ensure carryover of functional gains achieved in the clinic. This treatment plan has been reviewed and agreement upon by the patient.
== END 2024-10-18 23:59 | disposition home or self-care (01) ==
LOC: ANHGOSHPT 08:45
PROVIDERS: PCP Emergency Medicine; Visit Provider Orthopaedic Surgery
DX: S93.324D Dislocation of tarsometatarsal joint of right foot, subsequent encounter (principal)
CPT/HCPCS: 97014; 97016; 97110; 97112; 97140; 97161; 97530; G0283

== ENCOUNTER 2025-04-09 08:16 | Outpatient (CLI) | payer MEDICARE, SELFPAY ==
--- OUTSIDE RECORDS SUMMARY | 2025-04-09 08:49 | XMS_ITS | Clinical Summary ---
Author Organization [facility] [employer] Address [address] [place] [address] Care Team Providers Care Scaffolder Name Role Phone Salvador Ramos MD Primary Care Provider [phone] Source Comments [facility] [employer],non-owned Affiliates and Associated Physician Practices is amultiple site organization consisting of ambulatory clinics and hospital sitesin [place] and [place]. This disclosure is being madepursuant to the Care Everywhere program and may not contain all information available regarding this patient. Last updated 18.[facility] [employer] Allergies Active Allergy Reactions Criticality Noted Date Comments Naproxen Other 04/03/2024 I haven't taken it in 47 years but I know I had some sort of reaction. Able to tolerate ibuprofen. Medications * Be aware that medications may not be up to date on this document. Alwaysverify current medications with the patient. hydroCHLOROthi azide (Hydrodiuril) 25 MG tablet Take 1 (one) tablet by mouth once daily 3 Active fenofibrate micronized (Lofibra) 134 MG capsule Take 1 (one) capsule by mouth at bedtime 3 Active esomeprazole (NexIUM) 40 MG capsule Take 1 (one) capsule by mouth once daily Active lisinopril (Prinivil; Zestril) 40 MG tablet Take 1 (one) tablet by mouth once daily Active metoprolol tartrate IR (Lopressor) 25 MG tablet Take 2 (two) tablets by mouth 2 times daily 3 Active simvastatin (Zocor) 40 MG tablet Take 1 (one) tablet by mouth at bedtime 3 Active Levemir FlexPen pen Inject 23 (twenty three) Units subcutaneously at bedtime 3 Active vitamin D3 (Cholecacifero l) 125 MCG (5000 UT) tablet TAKE ONE TABLET BY MOUTH ONCE DAILY 30 tablet 4 Active acetaminophen (Tylenol) 325 MG tablet Take 2 (two) tablets by mouth every 4 hours as needed Maximum allowable Acetaminophen amount = 4 Grams (4000 mg) / 24 hours. 4 Active metFORMIN ER 24hr (Glucophage XR) 500 MG tablet Take 1 (one) tablet by mouth 2 times daily 30 tablet 1 4 Active aspirin EC (Ecotrin) 81 MG tablet Take 1 (one) tablet by mouth once daily Active amLODIPine (Norvasc) 5 MG tablet Take 1 (one) tablet by mouth once daily Active acetaminophen (Tylenol) 500 MG tablet Take 2 (two) tablets by mouth every 6 hours as needed for Fever or Pain Maximum allowable Acetaminophen amount = 4 Grams (4000 mg) / 24 hours. 42 tablet 5 Active oxyCODONE, immediate release, (Roxicodone) 5 MG tabletIndicati ons:Right foot pain Take 1 (one) tablet by mouth every 6 hours as needed for Pain 12 tablet 5 Active Active Problems Problem Noted Date Diagnosed Date Right foot pain 04/03/2024 Dislocation of tarsometatars al joint of right foot, initial encounter 04/03/2024 Immunizations Immunization Administration Dates Next Due INFLUENZA VACCINE, ADJUVANTE D, QUADR. (FLUAD QUADRIVALENT; 65Y+) (AIIV4) 04/05/2024 Social History Tobacco Use Types Packs/Day Years Used Date Smoking Tobacco: Former Cigarettes Cigars Smokeless Tobacco: Never Tobacco Cessation:Counseling Given: Not Answered Alcohol Use Standard Drinks/Week Comments Not Currently 0 (1 standard drink = 0.6 oz pur e alcohol) occ AUDIT-C Answer Date Recorded Q1: How often do you have a drink containing alc ohol? Never 11/13/2024 Q2: How many drinks containi ng alcohol do you have on a typical day when you are drinking? 1 or 2 11/13/2024 Q3: How often do you have six or more drinks on one occasion? Never 11/13/2024 Overall Financial Resource Strain (CARDIA) Answe r Date Recorded How hard is it for you to pa y for the very basics like food, housing, medical care, and heating? Not hard at all 04/04/2024 PHQ-2 Answer Date Recorded Patient Health Questionnaire-2 Score 0 08/09/2024 [facility] - Occupational Stress Questionnaire Answer Date Recorded Do you feel stress - tense, restless, nervous, or anxious, or unable to sleep at night because your mind is troubled all the time - these days? Not at all 04/04/2024 Hunger Vital Sign Answer Date Recorded Within the past 12 months, y ou worried that your food would run out before you got the money to buy more. Never true 04/04/20 24 Within the past 12 months, t he food you bought just didn't last and you didn't have money to get more. Never true 04/04/2024 PRAPARE - Transportation Answer Date Re corded In the past 12 months, has l ack of transportation kept you from medical appointments or from getting medications? No 03/19 In the past 12 months, has l ack of transportation kept you from meetings, work, or from getting things needed for daily living? No 04/04/2024 Housing Stability Vital Sign Answer Edi e Recorded In the last 12 months, was t here a time when you were not able to pay the mortgage or rent on time? No 04/04/2024 In the last 12 months, how many places have you lived? 1 04/04/2024 In the last 12 months, was t here a time when you did not have a steady place to sleep or slept in a usp (including now)? 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[employer] Gender Identity Not on file Sexual Orientation Not on file Last Filed Vital Signs Vital Sign Reading Time Taken Comments Blood Pressure 112/72 11/13/2024 9:55 AM CDT Pulse 70 11/13/2024 9:55 AM CDT Temperature 36.3 C (97.3 F) 11/13/2024 9:20 AM CDT Respiratory Rate 11 11/13/2024 9:55 AM CDT Oxygen Saturation 100% 11/13/2024 9:55 AM CDT Inhaled Oxygen Concentration - - Weight 108 kg (238 lb) 11/29/2024 9:11 AM CDT Height 180.3 cm (5' 11) 11/29/2024 9:11 AM CDT Body Mass Index 33.19 11/29/2024 9:11 AM CDT Plan of Treatment Health Maintenance Due Date Last Done Comments COLOGUARD (AGES 45-75) - COLON CA SCREENING 1958 COLON MONITORING 1958 COLONOSCOPY - COLON CA SCREENING 1958 CT COLONOGRAPHY - COLON CA SCREENING 1958 Colorectal Cancer Screening 1958 FIT - COLON CA SCREENING 1958 FLEX SIG - COLON CA SCREENING 1958 MEDICARE AWV 12 MONTHS 1958 HEPATITIS C SCREENING 12/17/1976 DTAP/TDAP/TD VACCINES (1 - Tdap) 1977 PNEUMOCOCCAL VACCINE 50+ (1 of 2 - PCV) 1977 ZOSTER VACCINE (1 of 2) 2008 Respiratory Syncytial Virus (RSV) Vaccine Pt: or over 60 yrs (1 - Risk 60-74 years 1-dose series) 2018 AAA SCREENING 12/23/2023 COVID-19 VACCINE (3 - 2024- season) 2025 10/12/2020, 09/19/2020 INFLUENZA VACCINE (#1) 2025 4, 06/26/2022, 08/12/2020, Additional history exists SCREENING FOR DIABETES 11/14/2027 5, 11/10/2024, 05/16/2024, Additional history exists DEPRESSION SCREENING Completed 08/09/2024, 04/19/20 24 HEPATITIS B VACCINE Aged Out No longe r eligible based on patient's age to complete this topic HIB VACCINE Aged Out No longer eligi ble based on patient's age to complete this topic HPV VACCINE Aged Out No longer eligi ble based on patient's age to complete this topic MENINGOCOCCAL (Group B) VACCINE SHARED DECISION-MAKING Aged Out No longer eligible based on patient's age to complete this topic MENINGOCOCCAL GROUPS A/C/Y/W VACCINE Aged Out No longer eligible based on patient's age to complete this topic Goals Goal Patient Goal Type Associated Problems Recent Progress Patient-Stated? Author Mobility General No Lali Ambriz RN Note: Expected end date: 09/06/2024 The goal is to maintain or improve your mobility at the optimum level for you. Interventions: Complete physical therapy Mobility General No Lali Ambriz RN Note: Expected end date: 10/05/2024 The goal is to maintain or improve your mobility at the optimum level for you. Interventions: Complete physical therapy Mobility General No Nuvia Muniz Note: Expected end date: WBAT The goal is to maintain or improve your mobility at the optimum level for you. Interventions: Perform independent activity per your ability Medical Devices Implanted Type Area Printing Mechanist Device Identifier Shelf Expiration Date Model / Serial / Lot 3.5mm Screws Cortex Implanted:Qty: 2 on 05/16/2024 by Gagandeep Donahue MD at [facility] Right: Foot [id number] / / Explanted Type Area Printing Mechanist Device Identifier Shelf Expiration Date Model / Serial / Lot 3.5mm Screws Cortex Explanted:Qty: 1 on 05/16/2024 by Gagandeep Donahue MD at [facility] Right: Foot [id number] / / 3.5mm Screws Cortex Explanted:Qty: 1 on 05/16/2024 by Gagandeep Donahue MD at [facility] Right: Foot [id number] / / Wire K 2mm 150mm Troc Pnt Ss Fx Strl Implanted:Qty: 1 on 04/04/2024 by Gagandeep Donahue MD at [facility] Explanted:Qty: 1 on 11/13/2024 by Salvador Chávez MD at [facility] [employer] [id number] 12/21/2033 [id number] / / [id number] Va Locking Screw P/N Implanted:Qty: 1 on 05/16/2024 by Gagandeep Donahue MD at [facility] Explanted:Qty: 1 on 11/13/2024 by Salvador Chávez MD at [facility] Right: Foot [id number] / / Wire K 1.6mm 150mm Troc Pnt Ss Fx Implanted:Qty: 1 on 05/16/2024 by Gagandeep Donahue MD at [facility] Explanted:Qty: 1 on 11/13/2024 by Salvador Chávez MD at [facility] Right: Foot [employer] [id number] / / Wire K 2mm 150mm Troc Pnt Ss Fx Strl Implanted:Qty: 1 on 04/04/2024 by Gagandeep Donahue MD at [facility] Explanted:Qty: 1 on 11/13/2024 by Salvador Chávez MD at [facility] [employer] [id number] 12/21/2033 [id number] / / [id number] 07/20 [employer] Plates 3.0/3.5/4.0 Implanted:Qty: 1 on 05/16/2024 by Gagandeep Donahue MD at [facility] Explanted:Qty: 1 on 11/13/2024 by Salvador Chávez MD at [facility] [employer] [id number] / / 3.5mm Screws Cortex Implanted:Qty: 1 on 05/16/2024 by Gagandeep Donahue MD at [facility] Explanted:Qty: 1 on 11/13/2024 by Salvador Chávez MD at [facility] Right: Foot [id number] / / 3.5mm Screws Cortex Implanted:Qty: 1 on 05/16/2024 by Gagandeep Donahue MD at [facility] Explanted:Qty: 1 on 11/13/2024 by Salvador Chávez MD at [facility] Right: Foot [id number] / / 3.5mm Screws Cortex Implanted:Qty: 1 on 05/16/2024 by Gagandeep Donahue MD at [facility] Explanted:Qty: 1 on 11/13/2024 by Salvador Chávez MD at [facility] Right: [employer] [id number] / / 3.5mm Screws Cortex Implanted:Qty: 1 on 05/16/2024 by Gagandeep Donahue MD at [facility] Explanted:Qty: 1 on 11/13/2024 by Salvador Chávez MD at [facility] Right: Foot [id number] / / Procedures Procedure Name Priority Date/Time Associated Diagnosis Comments GLUCOSE - POINT OF CARE Routine 11/13/2024 8:52 AM CDT from Last 3 Months or Most Recently Relevant to Health Maintenance Results * (ABNORMAL) GLUCOSE - POINT OF CARE (11/13/2024 8:52 AM CDT) Pathologist [facility] Glucose WB/POC 181(H) 70 - 99 mg/dL 11/13/2024 8:56 AM CDT [facility] Specimen Type Cap Fingerstick 2024 8:56 AM CDT [facility] Blood BLOOD SPECIMEN / Unknown 11/13/2024 8:52 AM CDT 11/13/2024 8:56 AM CDT Gagandeep Donahue MD LAB - POINT OF CARE ORDERABLES Final Result Performing Organization Address City/State/[facility] Co de Phone Number [facility] [address] [place] [address], [facility] [phone] from Last 3 Months or Most Recently Relevant to Health Maintenance Insurance [facility] C[facility] MEDICARE [facility] MEDICARE [place] PAYOR GENERIC MEDICARE [facility] INSURANCE MEDICARE SUPP PAYOR GENERIC Advance Directives * Full Code (Latest Code Status on File) Date Activated Date Inactivated Comments 04/03/2024 10:33 PM 04/06/2024 3:14 PM Care Teams Scaffolder Relationship Specialty Start Date End Date Salvador Ramos MD [address] [place] [id number] PCP - General Internal Medicine 11/13/24
[2025-04-09 13:05] LABS: Alanine Aminotransferase 25 U/L (6-50); Albumin Level 4.5 g/dL (3.5-5.1); Alkaline Phosphatase 54 U/L (38-126); Anion Gap 9 mmol/L (4-12); Aspartate Amino Transferase 57 U/L (17-59); Bilirubin,Total 0.5 mg/dL (0.2-1.3); Blood Urea Nitrogen 33 mg/dL (9-20); Calcium 9.6 mg/dL (8.4-10.2); Carbon Dioxide 25 mmol/L (22-30); Chloride 103 mmol/L (98-107); Cholesterol 181 mg/dL (0-200); Estimated Glomerular Filt Rate > 60; Glucose 140 mg/dL (65-110); HDL Direct 31 mg/dL; Potassium 4.9 mmol/L (3.4-5.0); Sodium 137 mmol/L (137-145); Total Protein 7.8 g/dL (6.3-8.2); Triglycerides 238 mg/dL (<150)
[2025-04-09 13:42] LABS: MALB Creatinine Ratio 71.3 mg/g (0-30)
[2025-04-09 13:49] LABS: Hematocrit 40.2 % (42.0-52.0); Hemoglobin 13.2 g/dL (14.0-18.0); Immature Granulocyte Percent A 0.3 % (0-0.5); Lymphocytes Absolute Auto 2.43 K/mm3 (0.9-3.2); Mean Corpuscular HGB Conc 32.8 g/dl (32-36); Mean Corpuscular Hemoglobin 31.1 pg (26-34); Mean Corpuscular Volume 94.8 fl (80-100); Nucleated Red Blood Cells Absolute Auto 0.000 K/mm3 (0.0-0.012); Nucleated Red Blood Cells Perc 0.0 % (0.0-0.2); Platelet Count Result 294 k/mm3 (150-375); Red Blood Count 4.24 M/mm3 (4.6-6.20); White Blood Count 7.1 K/mm3 (4.5-10.0)
[2025-04-09 14:48] LABS: Hemoglobin A1C 7.5 % (<5.7)
== END 2025-04-09 08:17 | disposition home or self-care (01) ==
PROVIDERS: PCP Emergency Medicine; Visit Provider Emergency Medicine
DX: E78.5 Hyperlipidemia, unspecified (principal); E11.9 Type 2 diabetes mellitus without complications; I10 Essential (primary) hypertension; E55.9 Vitamin D deficiency, unspecified
CPT/HCPCS: 36415; 80053; 80061; 82043; 82306; 83036; 85025